=== PATIENT | female | born 1980 | race Two or more races ===

== ENCOUNTER 2022-02-10 04:06 | Day surgery (SDC) | payer OTHER ==
[2022-02-08 14:28] VITALS: BMI 34.9
[2022-02-10] MEDS ORDERED: POVIDONE-IODINE OINTMENT 10% - 28.4 GM TUBE ONE (07:10)
[2022-02-10] MEDS ORDERED: HEPARIN NA (PORCINE) 5,000 UNITS/ML 1ML VIAL ONE (07:10)
[2022-02-10] MEDS ORDERED: LIDOCAINE HCL 1%, 10 MG/ML (20ML VIAL) ONE (07:10)
[2022-02-10] MEDS ORDERED: PAPAVERINE HCL 30 MG/1 ML 10 ML VIAL NR ONE (07:10)
[2022-02-10] MEDS ORDERED: PROPOFOL 20 ML ONE ×2 (07:39→09:54)
[2022-02-10] MEDS ORDERED: LIDOCAINE HCL/PF 2% SDV 5ML VIAL ONE (07:39)
[2022-02-10] MEDS ORDERED: MIDAZOLAM HCL 2 MG/2 ML SINGLE DOSE VIAL ONE ×2 (07:39→09:20)
[2022-02-10] MEDS ORDERED: ceFAZolin SODIUM 1 GM VIAL ONE (08:19)
[2022-02-10] MEDS ORDERED: ceFAZolin SODIUM 1 GM VIAL IVPB ONE (08:20)
[2022-02-10] MEDS ORDERED: LIDOCAINE HCL 1%, 10 MG/ML (20ML VIAL) NR ONE ×2 (08:35)
[2022-02-10] MEDS ORDERED: POVIDONE-IODINE 10% SOLN 118 ML BOTTLE TP ONE (10:15)
[2022-02-10] MEDS ORDERED: ONDANSETRON 4 MG/2 ML VIAL IVPUSH PRN (10:36)
[2022-02-10] MEDS ORDERED: oxyCODONE HCL 5 MG TABLET PO PRN (10:36)
[2022-02-10] MEDS ORDERED: oxyCODONE HCL 5 MG TABLET ONE (11:48)
[2022-02-10 13:44] VITALS: RESP 20; TEMP 98.9
[2022-02-10 13:49] VITALS: BP 128/78; PULSE 78
== END 2022-02-10 13:55 | disposition home or self-care (01) ==
LOC: JASU-SURG 04:06
PROVIDERS: ATTEND Surgery
PROC: 03160ZD Bypass Left Axillary Artery to Upper Arm Vein, Open Approach (ICD-10-PCS; principal; 2022-02-10 08:00)
DX: I12.0 Hypertensive chronic kidney disease with stage 5 chronic kidney disease or end stage renal disease (principal); N18.6 End stage renal disease; Z99.2 Dependence on renal dialysis
CPT/HCPCS: 94760; J1644

== ENCOUNTER 2022-05-21 04:13 | Day surgery (SDC) | payer OTHER ==
[2022-05-18 15:16] VITALS: BMI 33.3
[~2022-05-21 04:13] MED LIST: HEPARIN NA (PORCINE) 5,000 UNITS/ML 1ML VIAL SQ ONE; LIDOCAINE HCL 1%, 10 MG/ML (20ML VIAL) NR ONE
[2022-05-21] MEDS ORDERED: LIDOCAINE HCL 1%, 10 MG/ML (20ML VIAL) ONE ×2 (14:31→16:21)
[2022-05-21] MEDS ORDERED: PAPAVERINE HCL 30 MG/1 ML 10 ML VIAL NR ONE (14:31)
[2022-05-21] MEDS ORDERED: HEPARIN NA (PORCINE) 5,000 UNITS/ML 1ML VIAL ONE (14:31)
[2022-05-21] MEDS ORDERED: MIDAZOLAM HCL 2 MG/2 ML SINGLE DOSE VIAL ONE (15:53)
[2022-05-21] MEDS ORDERED: PROPOFOL 20 ML ONE ×5 (15:55→17:47)
[2022-05-21] MEDS ORDERED: ceFAZolin SODIUM 1 GM VIAL IVPB ONE (16:01)
[2022-05-21] MEDS ORDERED: LIDOCAINE HCL 1%, 10 MG/ML (20ML VIAL) NR ONE ×2 (16:10)
[2022-05-21] MEDS ORDERED: ONDANSETRON 4 MG/2 ML VIAL ONE (16:12)
[2022-05-21] MEDS ORDERED: HEPARIN NA (PORCINE) 5,000 UNITS/ML 1ML VIAL SQ ONE (16:15)
[2022-05-21] MEDS ORDERED: oxyCODONE HCL 5 MG TABLET PO PRN ×2 (18:12→18:25)
[2022-05-21] MEDS ORDERED: PROMETHAZINE HCL 25 MG/1 ML VIAL IVPUSH PRN (18:25)
[2022-05-21] MEDS ORDERED: ONDANSETRON 4 MG/2 ML VIAL IVPUSH PRN (18:25)
[2022-05-21] MEDS ORDERED: LACTATED RINGERS SOLUTION 1,000 ML IV SCH (18:30)
[2022-05-21 19:09] VITALS: RESP 18
[2022-05-21] MEDS ORDERED: oxyCODONE HCL 5 MG TABLET ONE (19:13)
[2022-05-21] MEDS: oxyCODONE HCL 5 MG TABLET PO PRN ×2 (19:15→19:18)
[2022-05-21 19:34] VITALS: BP 112/68; PULSE 71; TEMP 98.4
== END 2022-05-21 19:46 | disposition home or self-care (01) ==
LOC: JASU-SURG 04:13
PROVIDERS: ATTEND Surgery
PROC: 03180ZD Bypass Left Brachial Artery to Upper Arm Vein, Open Approach (ICD-10-PCS; principal; 2022-05-21 15:30)
DX: I12.0 Hypertensive chronic kidney disease with stage 5 chronic kidney disease or end stage renal disease (principal); N18.6 End stage renal disease; Z99.2 Dependence on renal dialysis
CPT/HCPCS: 36415; 84132; 94760; J1644